=== PATIENT | male | born 1970 | race Caucasian/White ===

== ENCOUNTER 2021-05-17 10:36 | Outpatient (CLI) | payer OTHER ==
[2021-05-17 21:12] LABS: SARS-CoV-2 PCR by NAA Not Detected (NotDetected)
== END 2021-05-17 10:37 | disposition home or self-care (01) ==
LOC: CSHLAB 10:36
PROVIDERS: ATTEND Orthopaedic Surgery
DX: Z01.818 Encounter for other preprocedural examination (principal); Z20.822 Contact with and (suspected) exposure to COVID-19; M16.11 Unilateral primary osteoarthritis, right hip
CPT/HCPCS: 93005; 93010; U0003; U0005

== ENCOUNTER 2021-05-22 07:42 | Inpatient (IN) | payer OTHER ==
[2021-05-20 13:34] VITALS: BMI 34.4
[2021-05-22] MEDS ORDERED: Acetaminophen 500 MG TAB ONE (07:53)
[2021-05-22] MEDS ORDERED: CeleCOXIB 100 MG CAP ONE (07:53)
[2021-05-22] MEDS ORDERED: Gabapentin 300 MG CAP ONE (07:53)
[2021-05-22] MEDS ORDERED: Lidocaine 1% MPF 2 ML VIAL ONE (07:56)
[2021-05-22] MEDS ORDERED: EPINEPHrine 1 MG/ML AMP ONE ×2 (08:46→08:54)
[2021-05-22] MEDS ORDERED: Ketorolac Tromethamine 30 MG/ML VIAL ONE ×2 (08:46→10:54)
[2021-05-22] MEDS ORDERED: Morphine 10 MG/ML VIAL ONE (08:46)
[2021-05-22] MEDS ORDERED: Neomycin-Polymyxin 1 ML AMP ONE (08:47)
[2021-05-22] MEDS ORDERED: Tranexamic Acid 1,000 MG/10 ML VIAL ONE (08:47)
[2021-05-22] MEDS ORDERED: Ropivacaine 0.2% HCl/PF 40 ML ONE (08:47)
[2021-05-22] MEDS ORDERED: Midazolam HCl 2 mg/2 ml Vial ONE ×2 (08:54→10:19)
[2021-05-22] MEDS ORDERED: Dexamethasone 4 mg/ml Vial ONE (08:54)
[2021-05-22] MEDS ORDERED: Bupivacaine PF 0.5% 30 ML VIAL ONE (08:55)
[2021-05-22] MEDS ORDERED: Fentanyl 100 MCG/2 ML VIAL ONE ×2 (08:55→13:47)
[2021-05-22] MEDS ORDERED: ceFAZolin 2 GM/DEX 5% 100 ML BAG ONE (10:15)
[2021-05-22] MEDS ORDERED: Dexamethasone 20 MG/5 ML VIAL ONE (10:19)
[2021-05-22] MEDS ORDERED: PROPOFOL 20 ML ONE (10:19)
[2021-05-22] MEDS ORDERED: Lidocaine 1% PF 5 ML VIAL ONE (10:19)
[2021-05-22] MEDS ORDERED: Fentanyl 250 MCG/5 ML VIAL ONE (10:19)
[2021-05-22] MEDS ORDERED: Ondansetron PF 4 MG/2 ML Vial ONE (10:19)
[2021-05-22] MEDS ORDERED: Rocuronium Bromide 10 MG/ML (10ML VIAL) ONE (10:19)
[2021-05-22] MEDS ORDERED: Acetaminophen 325 MG TAB PO PRN (10:25)
[2021-05-22] MEDS ORDERED: Promethazine HCl 25 MG/ML VIAL IM PRN (10:25)
[2021-05-22] MEDS ORDERED: HYDROcodone/Acetaminophen 10/325 mg Tablet PO PRN (10:25)
[2021-05-22] MEDS ORDERED: Ondansetron PF 4 MG/2 ML Vial IVP PRN (10:25)
[2021-05-22] MEDS ORDERED: traMADol HCl 50 MG TAB PO PRN (10:25)
[2021-05-22] MEDS ORDERED: diphenhydrAMINE 25 MG CAP PO PRN (10:25)
[2021-05-22] MEDS ORDERED: Zolpidem Tartrate 5 MG TAB PO PRN (10:25)
[2021-05-22] MEDS ORDERED: Glycopyrrolate 0.2 MG/ML 5 ML SYRINGE ONE (10:49)
[2021-05-22] MEDS ORDERED: PHENYLEPHRINE-NS 100 MCG/ML 10 ML SYRINGE ONE (10:49)
[2021-05-22] MEDS: Ketorolac Tromethamine 30 MG/ML VIAL IVP SCH ×2 (15:27→21:19)
[2021-05-22] MEDS: CEFAZOLIN 2 GM in Premix Bag 1 BAG IVPB SCH ×2 (15:28→20:37)
[2021-05-22] MEDS: ceFAZolin Sodium/D5W 2 GM in Premix Bag 1 BAG IVPB SCH (19:29)
[2021-05-22] MEDS: Ferrous Gluconate 324 MG TAB PO SCH (21:18)
[2021-05-22] MEDS: Senokot S 8.6-50 MG TAB PO SCH (21:18)
[2021-05-22] MEDS: Aspirin 81 mg Enteric Coated Tablet PO SCH (21:18)
[2021-05-23] MEDS: ceFAZolin Sodium/D5W 2 GM in Premix Bag 1 BAG IVPB SCH (03:47)
[2021-05-23 04:29] LABS: Hemoglobin 10.2 g/dL (13.5-17.5); Mean Corpuscular HGB CONC 32.9 g/dL (32.0-36.0); Mean Corpuscular Hemoglobin 30.3 pg (27.0-33.0); Platelet Count 211 10x3/uL (150-450); RBC Distribution Width 13.3 % (11.5-14.5); Red Blood Cell (RBC) Count 3.37 10x6/uL (4.32-5.72); White Blood Cell (WBC) Count 16.9 10x3/uL (3.5-10.5)
[2021-05-23] MEDS: Ketorolac Tromethamine 30 MG/ML VIAL IVP SCH ×2 (05:01→14:55)
[2021-05-23] MEDS: Ferrous Gluconate 324 MG TAB PO SCH (08:54)
[2021-05-23] MEDS: Aspirin 81 mg Enteric Coated Tablet PO SCH (08:54)
[2021-05-23] MEDS: Senokot S 8.6-50 MG TAB PO SCH (08:54)
[2021-05-23] MEDS ORDERED: Multivitamin W/ Minerals 1 TAB PO SCH (09:00)
[2021-05-23 11:53] VITALS: BP 142/81; TEMP 98.8
[2021-05-24] MEDS ORDERED: CeleCOXIB 100 MG CAP PO SCH (09:00)
== END 2021-05-23 16:00 | disposition home or self-care (01) | DRG 470 ==
LOC: CSHSDC 07:42 → CSHTELE 14:30
PROVIDERS: ADMIT Orthopaedic Surgery; ATTEND Orthopaedic Surgery
PROC: 0SR90JZ Replacement of Right Hip Joint with Synthetic Substitute, Open Approach (ICD-10-PCS; principal; 2021-05-22)
DX: M16.11 Unilateral primary osteoarthritis, right hip (principal)
CPT/HCPCS: 36415; 36416; 85027; 94760; J0171; J1100; J1885; J2250; J2270; J2405; J2704; J2795; J3010; J3370; S0020

== ENCOUNTER 2021-07-08 11:21 | Outpatient (CLI) | payer OTHER | END 2021-07-08 11:22 | disposition home or self-care (01) | LOC: CSHULT 11:21 | PROVIDERS: ATTEND Orthopaedic Surgery | DX: I82.409 Acute embolism and thrombosis of unspecified deep veins of unspecified lower extremity (principal) | CPT/HCPCS: 93970 ==

== ENCOUNTER 2022-11-12 05:48 | Day surgery (SDC) | payer OTHER ==
[2022-11-10 15:14] VITALS: BMI 34.4
[2022-11-12] MEDS ORDERED: PROPOFOL 40 ML ONE (07:00)
[2022-11-12] MEDS ORDERED: Lidocaine 1% PF 5 ML VIAL ONE (07:00)
== END 2022-11-12 08:45 | disposition home or self-care (01) ==
LOC: CSHSDC 05:48
PROVIDERS: ATTEND Internal Medicine Gastroenterology
PROC: 0DJD8ZZ Inspection of Lower Intestinal Tract, Via Natural or Artificial Opening Endoscopic (ICD-10-PCS; principal; 2022-11-12)
DX: Z12.11 Encounter for screening for malignant neoplasm of colon (principal); K57.30 Diverticulosis of large intestine without perforation or abscess without bleeding; I10 Essential (primary) hypertension; E78.5 Hyperlipidemia, unspecified; M19.90 Unspecified osteoarthritis, unspecified site; F32.A Depression, unspecified; Z79.899 Other long term (current) drug therapy
CPT/HCPCS: J2704

== ENCOUNTER 2024-04-27 09:57 | Observation (INO) | payer OTHER ==
[2024-04-06 10:56] VITALS: BMI 34.4
[2024-04-27] MEDS ORDERED: Ketorolac Tromethamine 30 MG (1 mL) VIAL ONE (10:30)
[2024-04-27] MEDS ORDERED: Gabapentin 300 MG CAP ONE (10:31)
[2024-04-27] MEDS ORDERED: Acetaminophen 325 MG TAB ONE (10:31)
[2024-04-27] MEDS ORDERED: Tranexamic Acid 1,000 MG/10 ML VIAL ONE ×2 (10:52→11:43)
[2024-04-27] MEDS ORDERED: Vancomycin 1 GM VIAL ONE (10:53)
[2024-04-27] MEDS ORDERED: CEFAZOLIN 2 GM VIAL ONE (10:53)
[2024-04-27] MEDS ORDERED: Lidocaine 4% PF 5 ML AMP ONE (10:56)
[2024-04-27] MEDS ORDERED: PROPOFOL 20 ML ONE (10:56)
[2024-04-27] MEDS ORDERED: MINERAL OIL/WHITE PETROLATUM 3.5 GM TUBE ONE (10:56)
[2024-04-27] MEDS ORDERED: Lidocaine 2% PF 5 ML VIAL ONE (10:56)
[2024-04-27] MEDS ORDERED: Rocuronium Bromide 10 MG/ML (10ML VIAL) ONE (10:56)
[2024-04-27] MEDS ORDERED: Phenylephrine 40 MG/NS 250 ML 250 ML ONE (10:57)
[2024-04-27] MEDS ORDERED: fentaNYL 50 mcg/mL 1 mL Vial ONE ×6 (10:59→15:15)
[2024-04-27] MEDS ORDERED: Midazolam HCl 2 mg/2 ml Vial ONE (11:17)
[2024-04-27] MEDS ORDERED: Lidocaine 1% PF 5 ML VIAL ONE (11:29)
[2024-04-27] MEDS ORDERED: EPINEPHrine 1 MG/ML VIAL ONE (11:29)
[2024-04-27] MEDS ORDERED: Ropivacaine 0.5% HCl/PF (150 MG/30 ML VIAL) ONE (11:29)
[2024-04-27] MEDS ORDERED: Ropivacaine 0.2% HCl/PF 20 ML ONE (11:30)
[2024-04-27] MEDS ORDERED: HYDROcodone/Acetaminophen 10/325 mg Tablet PO PRN ×2 (12:05)
[2024-04-27] MEDS ORDERED: Acetaminophen 325 MG TAB PO PRN (12:05)
[2024-04-27] MEDS ORDERED: diphenhydrAMINE 50 MG CAP PO PRN (12:05)
[2024-04-27] MEDS ORDERED: Ondansetron PF 4 MG/2 ML Vial IVP PRN ×2 (12:05→13:45)
[2024-04-27] MEDS ORDERED: Dexamethasone 20 MG/5 ML VIAL ONE (12:53)
[2024-04-27] MEDS ORDERED: Ondansetron PF 4 MG/2 ML Vial ONE (12:53)
[2024-04-27] MEDS ORDERED: ePHEDrine Sulfate 50 MG/10 ML VIAL ONE (13:15)
[2024-04-27] MEDS ORDERED: Albuterol HFA (OR) 200 PUFF INH ONE (13:15)
[2024-04-27] MEDS ORDERED: Ropivacaine 0.2% 550 ML 550 ML NERVE BLCK SCH (13:45)
[2024-04-27] MEDS ORDERED: Promethazine HCl 25 MG/ML VIAL IM PRN (13:45)
[2024-04-27] MEDS ORDERED: Zolpidem Tartrate 5 MG TAB PO PRN (13:45)
[2024-04-27] MEDS ORDERED: SUGAMMADEX SODIUM 200 MG/2 ML VIAL ONE (13:46)
[2024-04-27] MEDS: Ketorolac Tromethamine 30 MG (1 mL) VIAL IVP SCH (17:40)
[2024-04-27] MEDS: CEFAZOLIN 2 GM in Sodium Chloride 0.9% 100 ML IVPB SCH (17:42)
[2024-04-27] MEDS: Sodium Chloride 0.9% 1,000 ML IV SCH (17:43)
[2024-04-27] MEDS: Famotidine/PF 20 mg/2ml Vial SLOW IVP SCH (21:31)
[2024-04-27] MEDS: Escitalopram Oxalate 10 mg Tablet PO SCH (21:31)
[2024-04-27] MEDS: Losartan 50 MG TAB PO SCH (21:31)
[2024-04-27] MEDS: dilTIAZem CD 180 MG CAP PO SCH (21:31)
[2024-04-27] MEDS: Atorvastatin Calcium 40 MG TAB PO SCH (21:31)
[2024-04-28] MEDS: Enoxaparin 40 MG (0.4 mL) SYRINGE SC SCH (08:37)
[2024-04-28 11:14] VITALS: BP 147/82; TEMP 98.5
== END 2024-04-28 10:35 | disposition home or self-care (01) ==
LOC: CSHSDC 09:57 → CSHTELE 12:05
PROVIDERS: ADMIT Orthopaedic Surgery; ATTEND Orthopaedic Surgery
PROC: 0RRJ0JZ Replacement of Right Shoulder Joint with Synthetic Substitute, Open Approach (ICD-10-PCS; principal; 2024-04-28)
PROC: 0LX30ZZ Transfer Right Upper Arm Tendon, Open Approach (ICD-10-PCS; 2024-04-28)
DX: M19.011 Primary osteoarthritis, right shoulder (principal); M75.101 Unspecified rotator cuff tear or rupture of right shoulder, not specified as traumatic; S43.431A Superior glenoid labrum lesion of right shoulder, initial encounter; X58.XXXA Exposure to other specified factors, initial encounter
CPT/HCPCS: 71045; C1713; C1776; J0171; J1100; J1650; J1885; J2001; J2250; J2405; J2704; J2795; J3010; J3370; J3490; J7030